=== PATIENT | male | born 1960 | race Caucasian/White ===

== ENCOUNTER 2020-02-19 12:44 | Day surgery (SDC) | payer OTHER, SELFPAY ==
--- NOTE | 2020-02-18 16:46 | PCM.HP.BLA ---
History and Physical Date of Admission: 02/19/20 HISTORY AND PHYSICAL ? Hans Barnett 1960 ? ? CHIEF COMPLAINT: bilateral inguinal hernia ? HPI: Hans is a 59 year old male with a complaint of a bulge asymptomaticasy and discomfort in his left inguinal region. The patient notes discomfort in this area with lifting, straining and coughing. The symptoms have increased, over the past few months. ? The patient notes no symptoms of bowel obstruction and denies nausea or vomiting. The patient was seen by his primary care physician who felt the patient has a hernia. Hans was referred for evaluation and treatment. He also noted an asymptomatic right inguinal hernia ? ? PAST MEDICAL HISTORY ? GERD (gastroesophageal reflux disease) ? PAST SURGICAL HISTORY ? COLONOSCOPY ? 2018 ? EGD ? 2016 CURRENT MEDICATIONS ? omeprazole (PRILOSEC) 20 mg capsule Take 20 mg by mouth once daily. ? ALLERGIES: Patient has no known allergies. ? PERSONAL HISTORY: SOCIAL HISTORY Tobacco Use ? Smoking status: Never Smoker ? Smokeless tobacco: Never Used Substance Use Topics ? Alcohol use: Not Currently ? Drug use: Never FAMILY HISTORY: ? Stroke Mother ? ? Heart disease Father ? ? REVIEW OF SYSTEMS: GENERAL: denies fevers, No weight loss, malaise or fevers RESPIRATORY: Negative for cough, hemoptysis, wheezing, COPD, dyspnea or shortness of breath CARDIOVASCULAR: denies chest pain GI: denies blood in stools :denies blood in urine MUSCULOSKELETAL: Negative for new or worsening joint pain or swelling, back pain or muscle pain. PSYCH: normal mood HEMATOLOGY/LYMPHOLOGY Negative for prolonged bleeding, bruising easily or swollen nodes NEURO: No history of headaches, syncope, paralysis, seizures or tremors ? PHYSICAL EXAMINATION: ? General: The patient is 59 year old male, well nourished, well hydrated in no acute distress. The patient is oriented to time, place, and person. ? VITALS: Blood pressure 142/84, pulse 67, temperature 36.2 ?C (97.1 ?F), temperature source Temporal Artery, height 190.5 cm (6' 3), weight 87.1 kg (192 lb), SpO2 96 %. Body mass index is 24 kg/m?. ? HEENT: Normal cephalic, ataumatic, pupils are equally round, sclera are anicteric, mucous membranes are moist, oropharynx is clear. Neck has no masses, asymmetry or lymphadenopathy. Thyroid is unremarkable. ? Respiratory: Clear to auscultation and percussion. Normal respiratory excursion and pattern. ? Cardiac: Examination is regular rate and rhythm. ? Abdominal exam: Soft, nontender, with no palpable masses. No hepatosplenomegaly. A moderate reducible left inguinal hernia,a smaller right inguinal, no umbilical hernia ? Rectal exam: exam deferred ? Extremities: no clubbing, cyanosis or edema. No adenopathy. ? IMPRESSION: bilateral inguinal hernias ? PLAN: My plan is to perform a laparoscopic bilateral inguinal hernia repair with mesh. The planned surgical procedure was discussed extensively with the patient. The risks, benefits, anticipated outcomes and possible complications were mentioned. [place] undersands that all hernia repair surgery has a chance of recurrence and/or chronic post operative pain. My staff has also explained the procedure in understandable terms and the patient was given the option to take printed material concerning the planned procedure. The patient had the opportunity to ask questions concerning the planned procedure. The patient freely consents to the planned procedure. ? I plan to double check that my understanding is I am not able to perform surgery at a [facility] with [facility]. My partner, Gisela Pineda maintains privileges at [facility] which should be acceptable to [facility]. I had her see the patient. ? The patient was offered a surgery/procedure. The provider and patient have discussed in detail the risk of exposure to and/or potential harm posed by the COVID-19 virus with having a surgery/procedure at this time versus the risk of delaying the surgery/procedure. It is not possible to know either the risk of delaying the surgery or procedure or chance of getting an infection with perfect accuracy, but a joint decision was made between the patient and the provider to proceed at this time with the scheduled surgery/procedure. ? Diagnoses: (K40.20) Non-recurrent bilateral inguinal hernia without obstruction or gangrene (primary encounter diagnosis) ? Anticipated CPT Code: laparoscopic bilateral inguinal hernia repair with mesh - 59867 x 2-000 ? Anticipated Anesthetic: General ? Patient weight: Blood pressure 142/84, pulse 67, temperature 36.2 ?C (97.1 ?F), temperature source Temporal Artery, height 190.5 cm (6' 3), weight 87.1 kg (192 lb), SpO2 96 %. BMI: Body mass index is 24 kg/m?. ? Planned antibiotic: Ancef 2gm IVPB economic forecaster to OR ? SCDs needed - No Return to Clinic: The patient is instructed to follow-up with Dr. Pineda as necessary. ? Bennie Patten MD
[2020-02-19] VITALS (9 sets, daily range): BP systolic 112–148; BP diastolic 57–95; PULSE 56–80; RESP 16–18; TEMP 36.4–36.9; O2SAT 95–100; BMI 24.0
--- NOTE | 2020-02-19 12:55 | EKG12_ITS ---
Test Reason : PREOP Blood Pressure : / mmHG Vent. Rate : 081 BPM Atrial Rate : 092 BPM P-R Int : 150 ms QRS Dur : 102 ms QT Int : 390 ms P-R-T Axes : 068 041 075 degrees QTc Int : 453 ms Sinus rhythm with frequent Premature ventricular complexes Otherwise normal ECG No previous ECGs available Confirmed by RENU STAPLES ([id number]), book editor LAY MARIA ([id number]) on 02/26/2020 11:23:59 AM Referred By: Gisela Pineda Confirmed By:RENU STAPLES
[2020-02-19] MEDS: Lactated Ringers 1,000 ML 75 ML IV ×3 (13:36→18:37)
[2020-02-19] MEDS: Cefazolin 2 GM in 0.9% Normal Saline 100 ML IV (14:46)
--- NOTE | 2020-02-19 16:09 | OP.PCM_ITS ---
Report of Operation Date of Procedure: 02/19/20 Pre-Operative Diagnosis: right and left inguinal hernia Post-Operative Diagnosis: right inguinal hernia - direct and indirect. left inguinal hernia - left femoral hernia and small direct defect Surgery/Procedure Performed:: right inguinal hernia repair with mesh placed preperitoneally. left femoral hernia repair with mesh placed preperitoneally Description of Surgical Findings:: right inguinal hernia was a direct and indirect inguinal hernia, left inguinal hernia was a small direct inguinal hernia and a left femoral hernia - no indirect sac found operator/assistant foreman: Bella Pryor Type of Anesthesia:: General Anesthesiologist: Nicolas Park Specimen's removed: none Drains: none Estimated Blood Loss (mL): < 10 ml Fluids Replaced: 1200 ml RL Description of Procedure: After informed consent was obtained, patient was brought to the Operating Room. Appropriate time out protocol was followed. The patient was placed in the supine position. The patient was then placed under anesthesia - intially MAC/local and then changed to general LMA. The lower torso and the bilateral groin area and genitalia were then prepped with a surgical skin preparation and appropriate sterile surgical drapes were placed. The right inguinal hernia was approached first. The anatomical landmarks were identified and after anesthetizing the skin and subcutaneous tissues with 0.25% Marcaine with epinephrine, a transverse skin incision was made above the level of the internal inguinal ring. The subcutaneous tissues were then sharply dissected down to the external oblique fascia and any hemorrhage was adequately controlled with electrocoagulation. The external oblique was then divided obliquely along the fibers and a muscle-splitting incision was then made to divide the internal oblique musculature and fascia. The transversalis fascia was then identified and was then incised parallel to the inferior hypogastric vessels. The preperitoneal space was then entered. Blunt dissection was then done to identify out Alhaji's ligament, the pubic tubercle and a large area surrounding these landmarks for placement of the mesh. The iliac vessels were identified. There was an internal hernia sac identified. The peritoneal sac was then from the spermatic cord by blunt and sharp dissection. It was opened and there was no incarceration of any intraabdominal contents. There is no evidence of any other opening in the peritoneum. The peritoneal opening that was created was then closed using a running 3-0 Vicryl suture. Hemostasis was controlled with electrocautery. There was a direct fascial defect noted within Hasselbach's triangle A large right sided 3D Bard mesh was then placed in the preperitoneal space such that it would be overlapping medially beyond the pubic tubercle and overlapping inferior to Alhaji's ligament. It was then flattened out in its entirety against the anterior abdominal wall. he patient was then placed in the reversed [place] position to ensure that the mesh was laid out properly according to furrier shop supervisor's guidelines. The mesh covered the entire wound opening also. The internal oblique fascia was then closed using interrupted 0 prolene suture. One of the sutures was used to lock the mesh into position. Hemostasis was carefully controlled with electrocoagulation. The external oblique fascia was then reapproximated using a running 0 Vicryl suture. This was carefully done to avoid any entrapment of blood vessels/nerves. Delbert's fascia was closed using Vicryl suture in an interrupted simple fashion. The skin incision was closed with 4-0 Monocryl in a running subcuticular fashion. Cavilon and Steri-Strips were used to reinforce the skin closure and appropriate sterile dressing was applied. The left inguinal hernia was approached next. The anatomical landmarks were identified and after anesthetizing the skin and subcutaneous tissues with 0.25% Marcaine with epinephrine, a transverse skin incision was made above the level of the internal inguinal ring to mirror the right sided incision. The subcutaneous tissues were then sharply dissected down to the external oblique fascia and any hemorrhage was adequately controlled with electrocoagulation. The external oblique was then divided obliquely along the fibers and a muscle- splitting incision was then made to divide the internal oblique musculature and fascia. The transversalis fascia was then identified and was then incised parallel to the inferior hypogastric vessels. The preperitoneal space was then entered. Blunt dissection was then done to identify out Alhaji's ligament, the pubic tubercle and a large area surrounding these landmarks for placement of the mesh. The iliac vessels were identified. There was no internal hernia sac identified. There was a direct fascial defect noted within Hasselbach's triangle. Hemostasis was controlled with electrocautery. A large left sided 3D Bard mesh was then placed in the preperitoneal space such that it would be overlapping medially beyond the pubic tubercle and overlapping inferior to Alhaji's ligament. It was then flattened out in its entirety against the anterior abdominal wall. The patient was then placed in the reversed [place] position to ensure that the mesh was laid out properly according to furrier shop supervisor's guidelines. The mesh covered the entire wound opening also. The internal oblique fascia was then closed using interrupted 0 prolene suture. One of the sutures was used to lock the mesh into position. Hemostasis was carefully controlled with electrocoagulation. The external oblique fascia was th en reapproximated using a running 0 Vicryl suture. This was carefully done to avoid any entrapment of blood vessels/nerves. Delbert's fascia was closed using Vicryl suture in an interrupted simple fashion. The skin incision was closed with 4-0 Monocryl in a running subcuticular fashion. Cavilon and Steri-Strips were used to reinforce the skin closure and appropriate sterile dressing was applied. The patient was extubated. The patient was brought to the Recovery Room in stable condition. Grafts/Implants Used: left Bard 3D Lot [id number], right Bard 3D lot [id number] - Complications none noted - Admit VTE Documentation VTE Present on Admission: Yes VTE Mechan Device Prophylaxis: SCD's
[2020-02-19] MEDS: Bupivacaine 0.25% 30 ML Vial (16:17)
--- NOTE | 2020-02-19 16:25 | DCINST_ITS ---
Discharge Diet: No Restrictions - drink plenty of fluids Discharge Activity: Return to Normal Activity, May not drive while taking narcot ic pain medications. Lifting Restrictions: no lifting greater than 50 pounds for one month Call your doctor if your incision/area has: Continuous Slow Oozing, Foul Smelling Discharge Call your doctor if you observe: Fever of 101 or Higher Additional Dressing/Incision Instructions:: Leave dressings in place. May get wet in shower. Do not soak - no tub baths/swimming Additional Instructions: Recommended pain medication regimen take 650 mg of acetaminophen (Tylenol), then in 3-4 hours take 600 mg ibuprofen (Motrin), then in 3-4 hours take 650 mg acetaminophen, then in 3-4 hours take 600 mg ibuprofen, and so on take narcotic pain medication for pain not controlled by above and at night for enabling sleeping Ice packs to the area as tolerated will help It is common to develop bruising and swelling of the scrotum, if severe swelling - place a folded towel across upper thighs and rest scrotum on top - the fluid in the scrotum will then be able to return to the torso if you feel constipated, may take over the counter laxatives Allergies/Adverse Reactions: Allergies No Known Allergies Allergy (Verified 02/19/20 12:52) Medications to take at Discharge Omeprazole [Prilosec] 20 mg PO DAILY 02/12/20 Hydrocodone Bitart/Apap 5-325 [Mcdavid 5MG-325MG] 1 tab PO Q8H PRN PRN 5 Days #15 tab 02/19/20 The following prescriptions were given: Hydrocodone Bitart/Apap 5-325 [Mcdavid 5MG-325MG] 1 tab PO Q8H PRN PRN 5 Days #15 tab PRN Reason: Pain Transmission Status: Received by [id number] Primary Care Physician: Sanchez Delgado MD [Primary Care Provider] - Test Results: Test results from this visit will be discussed in further detail at your follow- up appointment, if applicable. Please Follow Up With: Gisela Pineda MD - please call if any problems and/or concerns When: A [facility] appointment will be set up for you
[2020-02-19] MEDS: HYDROcodone Bitartrate/Apap 5/325 Tablet PO (18:41)
[2020-02-19] MEDS: Ketorolac 30 MG/ML Syringe IV (19:13)
--- NOTE | 2020-02-19 19:53 | SUR.PHASEII ---
1939 Pt ambulated to bathroom w/o difficulty, gait steady. Pt denies any dizziness or nausea. Pt able to void this time.
== END 2020-02-19 19:55 | disposition home or self-care (01) ==
LOC: SDC 12:45 → AC 12:48
PROVIDERS: Anesthesiology; PCP Family Medicine; Referring Provider Surgery; Visit Provider Surgery
PROC: (CPT 49505; principal; 2020-02-19 14:00)
DX: K40.20 Bilateral inguinal hernia, without obstruction or gangrene, not specified as recurrent (principal); K41.90 Unilateral femoral hernia, without obstruction or gangrene, not specified as recurrent; K21.9 Gastro-esophageal reflux disease without esophagitis; Z11.59 Encounter for screening for other viral diseases
CPT/HCPCS: 00840; 49505; 87635; 93005; G2023; J7120; C1781; U0003